=== PATIENT | male | born 1960 | race Caucasian/White ===

== ENCOUNTER → 2021-05-05 | Outpatient (CLI) | payer SELFPAY ==
--- NOTE | 2021-05-05 14:41 | CT ---
EXAMINATION TYPE: CT abdomen pelvis w con DATE OF EXAM: 05/05/2021 COMPARISON: None HISTORY: Black stools x 1 week with left lower quadrant pain. CT DLP: 878 mGycm Automated exposure control for dose reduction was used. TECHNIQUE: Helical acquisition of images was performed from the lung bases through the pelvis. CONTRAST: Performed with Oral Contrast and with IV Contrast, patient injected with 100 mL of Isovue M300. FINDINGS: The lung bases are clear. The gallbladder is normal without gallstones, pericholecystic fluid, gallbladder wall thickening or d istention. No biliary duct is no focal mass or organomegaly involving the caliber of the abdominal ao rta is normal and there is no retroperitoneal adenopathy or hemorrhage. There is a 2.4 cm enhancing m ass in the mid right kidney which is highly suspicious for neoplasm. There are no left renal masses a nd there is no hydronephrosis. The bowel loops are normal in caliber and there is no evidence of obstruction. No inflammatory change s are identified in the mesentery and there is no free intraperitoneal air or fluid. There is a left inguinal hernia containing only fat. The urinary bladder wall is mildly diffusely thickened and there is moderate to marked prostatic hype rtrophy with prostatic calcification. There is no pelvic adenopathy. The visualized osseous structures are intact. IMPRESSION: 1. No significant abnormality involving the. 2. 2.5 cm enhancing right renal mass which is highly suspicious for neoplasm.
== END | disposition home or self-care (01) ==
LOC: RADCTMAIN 12:38
PROVIDERS: ATTEND Internal Medicine
DX: N28.89 Other specified disorders of kidney and ureter (principal)
CPT/HCPCS: 74177; Q9967 ×2